=== PATIENT | male | born 1955 | race Caucasian/White ===

== ENCOUNTER → 2019-04-01 | Outpatient (CLI) | payer BC ==
--- NOTE | 2019-04-01 11:50 | US ---
EXAM DESCRIPTION: Gall Bladder: ULTRASOUND. CLINICAL HISTORY: INTERCOSTAL PAIN COMPARISON: None. TECHNIQUE: Transabdominal scanning: Adame-scale and Doppler modes. FINDINGS: Gallbladder: normal size, shape, echogenicity; no intraluminal stones or sludge. 3.5 mm echogenic object attached to the wall, nonmobile and no posterior acoustic features. No fluid around the gallbladder. No wall thickening. 2.8 mm. Non-tender with transducer pressure. Common bile duct: caliber 3.7 mm within normal limits. Liver: Normal echogenicity, but also multiple hypoechoic/anechoic objects; 1.3 x 0.9 cm in the left lobe, 1.5 x 1.3 cm in the left lobe, 2.8 x 2.3 cm right lobe lesion with circumscribed echogenic margins and posterior acoustic enhancement. Contour liver capsule smooth where seen. No fluid around the liver. Intrahepatic biliary ducts normal caliber. Doppler hepatopedal flow portal vein.. Long axis right lobe cm Pancreas: normal size Normal echogenicity. Duct not seen. Aorta: Proximal segment 1.9 cm normal caliber. Right kidney: 10.1 cm long axis. Normal cortical thickness and echogenicity. No echogenic stones or hydronephrosis.. IMPRESSION: 1. Polyp on the gallbladder wall with no stones or sludge. No wall thickening or fluid. Gallbladder is nontender with transducer pressure. Normal caliber of the common bile duct. 2. Multiple anechoic/hypoechoic objects in the liver, the largest may represent a cyst. Recommend correlation with triple phase CT scan of the liver or MRI liver without and with gadolinium IV contrast. Remainder the liver with normal echogenicity and physiologic vascular flow. Normal intrahepatic ducts. Pancreas negative. 3. Caliber of the proximal abdominal aorta and sonography of the right kidney unremarkable. Electronically signed by: Jorge German MD 04/01/2019 11:48 AM ASSOCIATE ENGINEER
== END ==
LOC: US 07:56
PROVIDERS: ATTEND Family Medicine
DX: K82.4 Cholesterolosis of gallbladder (principal); K76.9 Liver disease, unspecified

== ENCOUNTER → 2019-04-09 | Outpatient (CLI) | payer BC ==
--- NOTE | 2019-04-09 09:07 | CT ---
EXAM DESCRIPTION: CT ABDOMEN WITH CONTRAST CLINICAL HISTORY: DISEASES OF LIVER COMPARISON: None Available. TECHNIQUE: CT of the abdomen is performed during IV bolus administration of 100 mL Isovue 300. Oral contrast media is administered as well. FINDINGS: The lung bases are clear of infiltrate. Small pulmonary nodules are present in the right lower lobe (2 mm) and in the left lower lobe (5 mm and 3 mm). For patients without a unusually high risk (smoker, exposed to secondhand smoke) no routine follow-up is needed for this finding. Liver is normal in size with multiple small lesions consistent with cysts. The largest is in the upper right lobe measuring 2.5 cm. Other cysts are smaller. Some of these were seen on sonography April 01, 2019. Small accessory splenule is present. Otherwise the spleen, pancreas and kidneys are unremarkable. There is no lymphadenopathy, inflammation, or free fluid observed. IMPRESSION: Multiple cysts in the liver. This exam was performed according to our departmental dose-optimization program, which includes automated exposure control, adjustment of the mA and/or kV according to patient size and/or use of iterative reconstruction technique. Electronically signed by: Lee Johnson MD 04/09/2019 9:06 AM [facility]
== END ==
LOC: CT 07:51
PROVIDERS: ATTEND Family Medicine
DX: K76.89 Other specified diseases of liver (principal)

== ENCOUNTER → 2019-04-22 | Outpatient (CLI) | payer BC ==
--- NOTE | 2019-04-23 09:02 | NM ---
EXAM DESCRIPTION: Hepatobiliar w/CCK: Nuclear Medicine. CLINICAL HISTORY: OTHER SPECIFIED DISEASES OF LIVER COMPARISON: CT abdomen April 09 and ultrasound gallbladder March 2019. TECHNIQUE: Patient was given 8.2 mCi of technetium 99 M mebrofenin (Choletec) radiopharmaceutical IV. Anterior gamma camera images were obtained of the right upper quadrant at 5 minute intervals for one hour . The patient was then given 1.7 mcg CCK IV infusion over 30-minute interval. Gallbladder ejection fraction was evaluated by measuring change in radioactivity in the gallbladder, over 30 min interval. FINDINGS: After administration of radiopharmaceutical, almost completely visualization of the liver except for the gallbladder fossa. Almost immediate and timely visualization of intrahepatic and extrahepatic ducts and gallbladder. Also the small intestine. After IV infusion of CCK began, patient experienced nausea and slight discomfort. 10 minutes after infusion began, activity decreased in the gallbladder by 6%. 13% decrease at 20 minutes and 14% decrease at 30 minutes. IMPRESSION: 1. No intrahepatic or extrahepatic biliary obstruction. 2. Significantly decreased gallbladder function with 13% ejection fraction at 30 minutes (lower normal limits 35%). This indicates chronic cholecystitis or gallbladder dyskinesia. Electronically signed by: Jorge German MD 04/23/2019 9:01 AM AD OPERATIONS SPECIALIST
== END ==
LOC: NM 09:00
PROVIDERS: ATTEND Family Medicine
DX: K76.89 Other specified diseases of liver (principal); K82.9 Disease of gallbladder, unspecified
CPT/HCPCS: 78227; A9537

== ENCOUNTER 2019-05-02 05:43 | Day surgery (SDC) | payer BC ==
[2019-05-02] MEDS ORDERED: raNITIdine HCL INJ 25 MG/ML VIAL ONE (07:00)
[2019-05-02] MEDS ORDERED: SODIUM CHLORIDE 0.9% 50 ML VIAL ONE (07:00)
[2019-05-02] MEDS ORDERED: PROPOFOL 200 MG/20 ML VIAL IV ONE (07:00)
[2019-05-02] MEDS ORDERED: PHENYLEPHRINE INJ 1ML 10 MG/ML VIAL ONE (07:00)
[2019-05-02] MEDS ORDERED: LIDOCAINE 1% 10 ML VIAL INJ ONE (07:00)
[2019-05-02] MEDS ORDERED: DEXAMETHASONE INJ 10 MG/ML VIAL ONE (07:00)
[2019-05-02] MEDS ORDERED: BUPIVACAINE 0.5% 30 ML VIAL INJ ONE (09:16)
[2019-05-02] MEDS ORDERED: LACTATED RINGERS 1,000 ML ONE (09:36)
[2019-05-02] MEDS ORDERED: BUPIVACAINE 0.5% W/EPI 30 ML VIAL INJ ONE (09:41)
[2019-05-02] MEDS ORDERED: IOPROMIDE INJ 300 MG/ML 50 ML INJ ONE (09:41)
[2019-05-02] MEDS ORDERED: KETAMINE HCL 100 MG/ML VIAL ONE (10:17)
[2019-05-02] MEDS ORDERED: DEXMEDETOMIDINE HCL 200 MCG/2 ML INJ IV ONE (10:17)
[2019-05-02] MEDS ORDERED: fentaNYL CITRATE INJ 50 MCG/ML AMP ONE (10:18)
[2019-05-02] MEDS ORDERED: MIDAZOLAM INJ 2 MG/2 ML VIAL ONE (10:18)
[2019-05-02] MEDS ORDERED: ROCURONIUM BROMIDE 10 MG/ML VIAL ONE ×2 (10:18→10:56)
[2019-05-02] MEDS ORDERED: SUGAMMADEX SODIUM 200 MG/2 ML VIAL IV ONE (10:56)
[2019-05-02] MEDS ORDERED: KETOROLAC TROMETHAMINE INJ 30 MG/ML VIAL ONE (11:25)
[2019-05-02] MEDS ORDERED: HYDROmorphone HCL INJ 2 MG/ML VIAL ONE (11:39)
[2019-05-02 13:46] VITALS: BP 116/69; TEMP 97.6; O2SAT 94
--- NOTE | 2019-05-03 08:23 | RAD ---
EXAM DESCRIPTION: Fluoroscopy Up to 1Hr CLINICAL HISTORY: 64 years Male, IOC COMPARISON: HIDA scan 04/22/2019. TECHNIQUE: Fluoroscopic images from an intraoperative cholangiogram. Fluoroscopy time: 9.2 seconds Fluoroscopic images: 2 Total dose: 1.27 mGy IMPRESSION: Intraprocedural fluoroscopic images saved for the benefit of the surgeon. Cannulation of the cystic duct with opacification of the biliary tree. Nondilated common bile duct and without persistent filling defect or stricture. The pancreatic duct is not visualized. Please refer to procedural report for full details. Electronically signed by: Romeo Gregory MD 05/03/2019 8:21 AM DIRECTOR OF SOFTWARE ENGINEERING
--- NOTE | 2019-05-22 14:57 | OP ---
DATE OF PROCEDURE: 05/02/19 PREOPERATIVE DIAGNOSIS: 1. Symptomatic cholelithiasis. POSTOPERATIVE DIAGNOSIS: 1. Symptomatic cholelithiasis. PROCEDURE: 1. Laparoscopic cholecystectomy with intraoperative cholangiogram. SURGEON: Filiberto Acosta MD. ANESTHESIA: General and local. FINDINGS: Cholangiogram revealed normal anatomy with free flow throughout the entire system into the duodenum without filling defect. COMPLICATIONS: None. ESTIMATED BLOOD LOSS: Minimal. SPECIMEN: Gallbladder. CONDITION: Stable. PLAN: Discharge. INDICATION: As stated. PROCEDURE: General anesthesia was induced. The patient was prepped and draped in sterile fashion. Marcaine 0.5% with epinephrine was used at all incision sites. While maintaining upward traction, a srikanth was made near the base of the umbilicus. Veress needle was introduced. There was free flow of fluid into the peritoneal cavity which was insufflated to an appropriate level with CO2 gas. The 5 mm trocar was placed followed by the camera. There was no evidence of bleeding or bowel injury. The patient was positioned and subxiphoid and lateral ports were placed under direct visualization without difficulty. The gallbladder fundus was identified and grasped and retracted superiorly and laterally. The infundibulum was grasped. The infundibular structures were dissected free. The duct and artery were clearly visualized through the triangle of Calot. A clip was placed on the proximal duct and ductotomy performed. The cholangiocatheter was introduced. The cholangiogram revealed the above normal findings. The catheter was removed. Three clips were placed on the distal duct. The duct was ligated and the artery triply ligated. The gallbladder was then dissected off the fossa in total and removed in the EndoCatch bag. The fossa was examined. It remained hemostatic. The clips were intact. There was no bleeding or bile leak. The subxiphoid fascia was then closed with 0 Vicryl using the suture passer. It was airtight and non-bleeding. The remaining trocar was removed. There was no bleeding from the trocar sites. The wounds were irrigated and closed with Monocryl. Dressings were applied. The patient was awakened and taken to Recovery in stable condition to be discharged. #[id number] MTDD
== END 2019-05-02 13:15 | disposition home or self-care (01) ==
LOC: AMB 05:43
PROVIDERS: ATTEND Surgery
DX: K80.10 Calculus of gallbladder with chronic cholecystitis without obstruction (principal); D13.5 Benign neoplasm of extrahepatic bile ducts; I10 Essential (primary) hypertension
CPT/HCPCS: 00790; 47563; 76000; A4216; J1100; J1170; J1885; J2250; J2780; J3010; J3490; J7120